=== PATIENT | female | born 1985 | race Caucasian/White ===

== ENCOUNTER 2017-08-03 13:34 | Inpatient (IN) ==
[2017-08-03] MEDS ORDERED: Azithromycin 500 MG in D5% in Water 250 ML IVPB ONE (14:32)
[2017-08-03] MEDS ORDERED: Ipratropium/Albuterol Neb 3 ML IH ONE (14:33)
[2017-08-03] MEDS ORDERED: 0.9 % Sodium Chloride 1,000 ML IVC ONE (14:34)
--- NOTE | 2017-08-03 15:15 | Emergency Department Note ---
Disposition Clinical Impression: Pneumonia affecting in third trimester Disposition: Admitted As Inpatient Condition: Good Time of Disposition: 17:18 General Adult HPI - General Chief complaint: ED Shortness of Breath/Dyspnea Stated complaint: pneumonia-sent by Dr. Gusman Time Seen by Provider: 08/03/17 14:15 Source: patient Limitations: no limitations Nursing Notes Reviewed: Yes Vital Signs Reviewed: Yes - History of Present Illness HPI Narrative: 31-year-old female presents to the emergency Department chief complaint of worsening pneumonia. Patient is 37 weeks . Patient was seen as an outpatient at her EMERGENCY DOCTOR's office today and was sent to the emergency department due to concerning for worsening pneumonia. Patient has had a fever at home. Patient has cough but denies hemoptysis, nausea, vomiting. Patient denies urinary symptoms at this time. Patient denies chest pain. Patient was placed on azithromycin as an outpatient but feels she is not getting better. Patient denies any vaginal cramping or bleeding at this time. Patient does have history of hypertension and is being controlled by labetalol. Pain Scale: 5 - Related Data Home Medications Medication Instructions Recorded Confirmed Docusate [Colace] 100 mg PO DAILY PRN 08/03/17 08/03/17 Ferrous Sulfate 325 mg PO BID 08/03/17 08/03/17 Labetalol [Trandate] 100 mg PO BID 08/03/17 08/03/17 Pnv95/Ferrous Fumarate/FA 1 each PO DAILY 08/03/17 08/03/17 [ Vitamin Tablet] Promethazine [Phenergan] 25 mg PO QPM 08/03/17 08/03/17 Previous Rx's Medication Instructions Recorded Ondansetron ODT [Zofran ODT] 4 mg SL Q8HR PRN #6 tab.rapdis 05/02/16 Albuterol Sulfate [Albuterol 1 puff IH Q4HR #1 hfa.aer.ad 07/31/17 Inhaler] Azithromycin [Azithromycin 6-Tab 250 mg PO PER PKG DI #6 tab 07/31/17 Pack] predniSONE [Prednisone] 50 mg PO DAILY #5 tablet 07/31/17 Allergies Allergy/AdvReac Type Severity Reaction Status Date / Time codeine Allergy Difficulty Verified 07/31/17 16:25 Breathing doxycycline Allergy Difficulty Verified 07/31/17 16:25 Breathing sulfamethoxazole Allergy Hives Verified 07/31/17 16:25 [From Bactrim] trimethoprim [From Bactrim] Allergy Hives Verified 07/31/17 16:25 All systems ED: reviewed and negative except as stated. Constitutional: Reports: fever. Denies: chills, weakness Eyes: Reports: as per HPI ENT ED: Reports: as per HPI Cardiovascular: Denies: chest pain, palpitations Respiratory: Reports: cough, dyspnea. Denies: wheezes, hemoptysis Gastrointestinal: Denies: abdominal pain, nausea, vomiting Genitourinary: Denies: urgency, dysuria, hematuria Musculoskeletal: Reports: as per HPI Integumentary: Reports: breast mass Neurological: Denies: weakness, numbness, paresthesias Psychiatric: Reports: as per HPI Endocrine: Reports: as per HPI Hematological/Lymphatic: Reports: as per HPI Allergic/Immunologic: Reports: as per HPI Past Medical History - Past Medical History Attestation: Yes The following information was validated with the patient. Medical history: Reports: asthma, hypertension Psychiatric history: Reports: no psych history EMERGENCY DOCTOR history: Reports: other - Social History Smoking Status: Current every day smoker Smokeless Tobacco Status: No Alcohol use: Reports: none Drug use: Reports: none Physical Exam - General Limitations: no limitations General appearance: alert, in no apparent distress - Head Head exam: atraumatic, normocephalic, normal inspection - Chest Chest inspection: Present: normal inspection, symmetric chest wall rise. Absent : tenderness, rash - Respiratory Respiratory exam: Present: other (Rhonchi in the right lower posterior lung field). Absent: respiratory distress, wheezes - Cardiovascular Cardiovascular exam: Present: regular rate, normal rhythm, normal heart sounds - Abdominal Exam Abdominal exam: Present: soft, Non-Tender - Extremities Exam Extremities exam: Present: normal inspection, full ROM - Neurological Exam Neurological exam: Present: alert, oriented X3 - Psychiatric Psychiatric exam: Present: normal affect, normal mood - Skin Skin exam: Present: warm, intact Course Course Narrative: 31-year-old female presenting to the emergency department with a worsening pneumonia. We will obtain basic lab work at this time along with blood cultures anyway. We will start IV antibiotics at this time. We will provide inhale to an abscess. Disposition admission after basic lab work is been completed. Patient is alert and oriented 3 in the room and stable vital signs. - Reevaluation(s) Reevaluation #1: Patient's lab work shows anemia and hypokalemia. We will admit the patient at this time for IV antibiotics for pneumonia. Patient in the room stable with stable vital signs. Time: 16:39 Reevaluation #2: Eliezer Jolly accepts the patient Time: 17:18 Vital Signs Temperature 98.1 F 08/03/17 13:35 Pulse Rate 85 08/03/17 13:35 Respiratory Rate 18 08/03/17 13:35 Blood Pressure 145/95 08/03/17 13:35 O2 Sat by Pulse Oximetry 98 08/03/17 13:35 Temperature 98.1 F 08/03/17 13:35 Pulse Rate 79 08/03/17 17:01 Respiratory Rate 16 08/03/17 18:11 Blood Pressure 130/84 08/03/17 18:11 O2 Sat by Pulse Oximetry 97 08/03/17 17:01 Oxygen Delivery Oxygen Delivery Room Air Medical Decision Making - Lab Data Result diagrams: 08/03/17 15:22 08/03/17 15:22 Lab Results 08/03/17 08/03/17 08/03/17 Range/Units 15:22 15:22 15:37 WBC 9.4 (4.3-11.1) K/mcL RBC 2.69 L (3.82-4.97) M/mcL Hgb 8.8 L (11.5-15.4) g/dL Hct 27.6 L (35.3-44.9) % MCV 102.6 H (83.0-100.0) fL MCH 32.7 (28.0-33.3) pg MCHC 31.9 (31.6-35.5) g/dL RDW 13.5 (11.5-14.5) % Plt Count 205 (140-400) K/mcL MPV 10.0 (9.4-12.4) fL Immature Gran % 2.3 (0-4) % Seg Neutrophils % 62.6 % Lymphocytes % 26.5 % Monocytes % 8.2 % Eosinophils % 0.2 % Basophils % 0.2 % Neutrophils # 5.9 (1.6-8.9) K/mcL Lymphocytes # 2.5 (0.6-4.6) K/mcL Monocytes # 0.8 (0.0-1.3) K/mcL Eosinophils # 0.0 (0.0-0.6) K/mcL Basophils # 0.0 (0.0-0.2) K/mcL Sodium 138 (136-145) mEq/L Potassium 3.1 L (3.5-4.5) mEq/L Chloride 108 (98-109) mEq/L Carbon Dioxide 21 (19-29) mEq/L BUN 7 (7-20) mg/dL Creatinine 0.62 (0.57-1.11) mg/dL Est GFR ( Amer) > 60 (> 60) Est GFR (Non-Af Amer) > 60 (> 60) BUN/Creatinine Ratio 11 (6-26) Glucose 97 (70-99) mg/dL Calculated Osmolality 284 (280-300) Lactic Acid 1.9 (0.5-2.2) mmol/L Calcium 8.5 L (8.6-10.8) mg/dL Urine Color (Yellow) Urine Clarity (Clear) Urine pH (5.0-8.0) pH Units Ur Specific Sturgeon (1.010-1.025) Urine Protein (Neg-Trace) mg/dL Urine Glucose (UA) (Normal) mg/dL Urine Ketones (Negative) mg/dL Urine Blood (Negative) Urine Nitrite (Negative) Urine Bilirubin (Negative) Urine Urobilinogen (Normal) mg/dL Ur Leukocyte Esterase (Negative) Ur Culture Indicated? (NO) 08/03/17 Range/Units 15:38 WBC (4.3-11.1) K/mcL RBC (3.82-4.97) M/mcL Hgb (11.5-15.4) g/dL Hct (35.3-44.9) % MCV (83.0-100.0) fL MCH (28.0-33.3) pg MCHC (31.6-35.5) g/dL RDW (11.5-14.5) % Plt Count (140-400) K/mcL MPV (9.4-12.4) fL Immature Gran % (0-4) % Seg Neutrophils % % Lymphocytes % % Monocytes % % Eosinophils % % Basophils % % Neutrophils # (1.6-8.9) K/mcL Lymphocytes # (0.6-4.6) K/mcL Monocytes # (0.0-1.3) K/mcL Eosinophils # (0.0-0.6) K/mcL Basophils # (0.0-0.2) K/mcL Sodium (136-145) mEq/L Potassium (3.5-4.5) mEq/L Chloride (98-109) mEq/L Carbon Dioxide (19-29) mEq/L BUN (7-20) mg/dL Creatinine (0.57-1.11) mg/dL Est GFR ( Amer) (> 60) Est GFR (Non-Af Amer) (> 60) BUN/Creatinine Ratio (6-26) Glucose (70-99) mg/dL Calculated Osmolality (280-300) Lactic Acid (0.5-2.2) mmol/L Calcium (8.6-10.8) mg/dL Urine Color Yellow (Yellow) Urine Clarity Clear (Clear) Urine pH 7.0 (5.0-8.0) pH Units Ur Specific Sturgeon 1.019 (1.010-1.025) Urine Protein Negative (Neg-Trace) mg/dL Urine Glucose (UA) Normal (Normal) mg/dL Urine Ketones Negative (Negative) mg/dL Urine Blood Negative (Negative) Urine Nitrite Negative (Negative) Urine Bilirubin Negative (Negative) Urine Urobilinogen Normal (Normal) mg/dL Ur Leukocyte Esterase Negative (Negative) Ur Culture Indicated? NO (NO) Attestation Statement - Attestation Attestation: I examined this patient and my medical decision-making was reviewed with the Resident Physician. I agree with the documented findings, disposition and treatment plan as described except to the extent set forth below. 37 weeks and found to have pneumonia. Sent in by EMERGENCY DOCTOR for admission to the hospital. She is scheduled for next week. Plan to admit for IV antibiotics, I would avoid reimaging at this time. She was febrile at the doctor's office today but afebrile on arrival. Stable at time of admission.
[2017-08-03 15:50] LABS: Basophils % 0.2 %; Eosinophils % 0.2 %; Hematocrit 27.6 % (35.3-44.9); Hemoglobin 8.8 g/dL (11.5-15.4); Immature Granulocytes % 2.3 % (0-4); Lymphocytes # 2.5 K/mcL (0.6-4.6); Lymphocytes % 26.5 %; Mean Corpuscular HGB Conc 31.9 g/dL (31.6-35.5); Mean Corpuscular Hemoglobin 32.7 pg (28.0-33.3); Mean Corpuscular Volume 102.6 fL (83.0-100.0); Monocytes # 0.8 K/mcL (0.0-1.3); Monocytes % 8.2 %; Neutrophils # 5.9 K/mcL (1.6-8.9); Platelet Count 205 K/mcL (140-400); Red Blood Count 2.69 M/mcL (3.82-4.97); Red Cell Distribution Width 13.5 % (11.5-14.5); Segmented Neutrophils % 62.6 %
[2017-08-03 15:56] LABS: Bilirubin,Urine Negative (Negative); Blood,Urine Negative (Negative); Clarity,Urine Clear (Clear); Color,Urine Yellow (Yellow); Glucose,Urine (UA) Normal (Normal); Ketones,Urine Negative (Negative); Leukocyte Esterase,Urine Negative (Negative); Nitrite,Urine Negative (Negative); Protein,Urine Negative (Neg-Trace); Specific Gravity,Urine 1.019 (1.010-1.025); Urobilinogen,Urine Normal (Normal)
[2017-08-03 16:03] LABS: BUN/Creatinine Ratio 11 (6-26); Blood Urea Nitrogen 7 mg/dL (7-20); Calcium 8.5 mg/dL (8.6-10.8); Carbon Dioxide 21 mEq/L (19-29); Chloride 108 mEq/L (98-109); Glucose 97 mg/dL (70-99); Osmolality,Calculated 284 (280-300); Potassium 3.1 mEq/L (3.5-4.5); Sodium 138 mEq/L (136-145); eGFR For African Americans > 60 (> 60); eGFR For Non-African Americans > 60 (> 60)
[2017-08-03] MEDS ORDERED: Naloxone 0.4 MG/ML INJ IVP PRN (22:47)
[2017-08-03] MEDS ORDERED: Acetaminophen 325 MG TABLET PO PRN (22:47)
--- NOTE | 2017-08-03 23:03 | OB/GYN Consult Note ---
Date of Encounter: 08/04/17 Time of Encounter: 22:30 Assessment and Plan (1) 37 weeks gestation of Current Visit: Yes Status: Acute Patient admits to good movement. She denies any vaginal fluid leakage or bleeding. Denies contractions. Pt was seen by Dr. Gusman in office today and BPP was 8/8 when performed today in outpatient clinic. - Daily NSTs.per Dr. Gusman. (2) Pneumonia Current Visit: No Status: Acute Qualifiers: Pneumonia type: due to unspecified organism Laterality: right Lung location: unspecified part of lung Qualified Code(s): J18.9 - Pneumonia, unspecified organism (3) Anemia Current Visit: Yes Status: Acute Hemoglobin count at 8.8. - Currently on iron supplements. Qualifiers: Anemia type: unspecified type Qualified Code(s): D64.9 - Anemia, unspecified History of Present Illness Consult date: 08/03/17 Requesting physician: Josephine Randolph Reason for consult: other (Pneumonia) Chief complaint: Fever, SOB History of present illness: Radha Quiroga is a 31 YO F at 37 4/7 wks gestation with a PMH of HTN and asthma that presents for worsening symptoms of PNA. Patient was originally seen at the [facility] on 07/31/17 where she complaining of fever, cough, and shortness of breath. She reported to the ER where chest x-ray showed possible PNA. She was discharged with azithromycin, prednisone, and albuterol. She was seen again today in [facility] outpatient and was complaining that her symptoms were not improving. She was sent to the ER and admitted to the hospital. She was started on IV antibiotics. When seen today, patient says that she has good movements. She denies contractions. Denies vaginal fluid leakage or bleeding. She admits to headaches, but says that she was having them prior to her . However, her headaches have been getting worse for the past few days. She is unsure how long they last but says they are usually relieved with Tylenol. She denies any vision changes. Denies chest pain. Admits to nausea throughout her , but denies any vomiting. She admits to having a fever earlier this morning, but not now. She admits to a productive cough but denies any hemoptysis. She denies dysuria or diarrhea. Past Med Surg Social Fam HX - Past Medical History Medical history: asthma, hypertension Psychiatric history: no psych history - Social History Smoking Status: Current every day smoker Smokeless Tobacco Status: No Alcohol use: none Drug use: none Medications and Allergies Ondansetron ODT [Zofran ODT] 4 mg SL Q8HR PRN #6 tab.rapdis 05/02/16 [Rx] Albuterol Sulfate [Albuterol Inhaler] 1 puff IH Q4HR #1 hfa.aer.ad 07/31/17 [Rx] Azithromycin [Azithromycin 6-Tab Pack] 250 mg PO PER PKG DI #6 tab 07/31/17 [Rx] predniSONE [Prednisone] 50 mg PO DAILY #5 tablet 07/31/17 [Rx] Docusate [Colace] 100 mg PO DAILY PRN 08/03/17 [History] Ferrous Sulfate 325 mg PO BID 08/03/17 [History] Labetalol [Trandate] 100 mg PO BID 08/03/17 [History] Pnv95/Ferrous Fumarate/FA [ Vitamin Tablet] 1 each PO DAILY 08/03/17 [ History] Promethazine [Phenergan] 25 mg PO QPM 08/03/17 [History] 3 Allergy/AdvReac Type Severity Reaction Status Date / Time codeine Allergy Difficulty Verified 07/31/17 16:25 Breathing doxycycline Allergy Difficulty Verified 07/31/17 16:25 Breathing sulfamethoxazole Allergy Hives Verified 07/31/17 16:25 [From Bactrim] trimethoprim [From Bactrim] Allergy Hives Verified 07/31/17 16:25 Review of Systems Constitutional: as per HPI Exam - Vital Signs Vital signs: Initial Vital Signs Temp Pulse Resp BP Pulse Ox 98.1 F 85 18 145/95 98 08/03/17 13:35 08/03/17 13:35 08/03/17 13:35 08/03/17 13:35 08/03/17 13:35 - Constitutional Constitutional: well developed, well nourished, no acute distress, average body habitus - HEENT HEENT: EOMI, PERRL, Mucus Membranes Moist - Lungs Respiratory exam: CTAB - Cardiovascular Cardiovascular exam: RRR, +S1, +S2 - Abdomen Abdomen: Present: bowel sounds normal, gravid, non tender - Extremities Extremities exam: normal capillary refill, normal inspection, radial pulses palpable and symmetrical Deep Tendon Reflex Grade: 2+ Normal - Comments Comments: Neuro: CN II-XII intact. No focal deficits noted. Results Result Diagrams: 08/03/17 15:22 08/03/17 15:22 Abnormal lab results RBC 2.69 M/mcL (3.82-4.97) L 08/03/17 15: Hgb 8.8 g/dL (11.5-15.4) L 08/03/17: Hct 27.6 % (35.3-44.9) L 08/03/17 15: MCV 102.6 fL (83.0-100.0) H 08/03/17 15: Potassium 3.1 mEq/L (3.5-4.5) L 08/03/17 15: Calcium 8.5 mg/dL (8.6-10.8) L 08/03/17 15:22 All other labs normal. Consult Discharge Plan - Plan Referrals: Cl Mahajan MD [Primary Care Provider] -
[2017-08-04 01:05] VITALS: BP 129/76
[2017-08-04] MEDS ORDERED: Albuterol 2.5 MG/3 ML NEBULIZER IH PRN (01:24)
--- NOTE | 2017-08-04 01:31 | Internal Med History&Physical ---
<Lynn Wayne - Last Filed: 08/04/17 01:44> Date of Encounter: 08/04/17 Time of Encounter: 23:00 Assessment and Plan (1) Hypokalemia Current visit: Yes Status: Acute 1 potassium 3.1 we will give 20 mEq of KCl by mouth and recheck in the a.m. (2) Pneumonia Current visit: No Status: Acute 1 patient has been experiencing cough fever and sputum production. She was treated as an outpatient without any improvement. Seen in ER today., was given Rocephin and Zithromax IV which we will continue. Oxygen as needed to maintain acid to greater than 92% Bronchodilators as needed Qualifiers: Pneumonia type: due to unspecified organism Laterality: right Lung location: unspecified part of lung Qualified Code(s): J18.9 - Pneumonia, unspecified organism (3) 37 weeks gestation of Current visit: Yes Status: Acute 1 patient is 37 weeks gestation OB has been consulted (4) Anemia Current visit: Yes Status: Acute 1 hemoglobin presently 8.8 down from previous of 9.9. Continue with iron supplements Qualifiers: Anemia type: unspecified type Qualified Code(s): D64.9 - Anemia, unspecified (5) DVT prophylaxis Current visit: Yes Status: Acute SCDs while in bed and encourage patient to ambulate (6) Tobacco use Current visit: Yes Status: Acute Encourage patient to stop smoking Internal Medicine - H&P: HPI Chief complaint: cough sob Admitted From: Emergency Dept Plans for Post Hospital Care: Home History of present illness: Ms. Quiroga is a 31 year old female past medical history of hypertension and asthma G7 para 3 presently 47 weeks gestation. She initially presented [facility] on 07/31 2017 was complaining of fever cough and shortness of breath. She was seen in the ER and chest x-ray was obtained which showed possible pneumonia. She was given orals Zithromax prednisone and albuterol. She continued to experience symptoms with little improvement. She presented today to OB office complaining that her symptoms have not improved. She was sent to the ER and admitted to the hospital. She was started on antibiotics. She has good movement she denies any contractions at this time or leakage of any vaginal fluids or bleeding. She denies any chest pain or shortness of breath she is hemodialysis stable at this time I review this case with who agrees with plan. Past Med Surg Social Fam HX - Past Medical History Medical history: asthma, hypertension Psychiatric history: no psych history - Social History Smoking Status: Current every day smoker Smokeless Tobacco Status: No Alcohol use: none Drug use: none - Family History Mother Living Status: Still Living Father Living Status: Still Living Internal Medicine - H&P: Meds Ondansetron ODT [Zofran ODT] 4 mg SL Q8HR PRN #6 tab.rapdis 05/02/16 [Rx] Albuterol Sulfate [Albuterol Inhaler] 1 puff IH Q4HR #1 hfa.aer.ad 07/31/17 [Rx] Azithromycin [Azithromycin 6-Tab Pack] 250 mg PO PER PKG DI #6 tab 07/31/17 [Rx] predniSONE [Prednisone] 50 mg PO DAILY #5 tablet 07/31/17 [Rx] Docusate [Colace] 100 mg PO DAILY PRN 08/03/17 [History] Ferrous Sulfate 325 mg PO BID 08/03/17 [History] Labetalol [Trandate] 100 mg PO BID 08/03/17 [History] Pnv95/Ferrous Fumarate/FA [ Vitamin Tablet] 1 each PO DAILY 08/03/17 [ History] Promethazine [Phenergan] 25 mg PO QPM 08/03/17 [History] 3 Allergy/AdvReac Type Severity Reaction Status Date / Time codeine Allergy Difficulty Verified 07/31/17 16:25 Breathing doxycycline Allergy Difficulty Verified 07/31/17 16:25 Breathing sulfamethoxazole Allergy Hives Verified 07/31/17 16:25 [From Bactrim] trimethoprim [From Bactrim] Allergy Hives Verified 07/31/17 16:25 All Systems PM: A 10-system review of systems was performed and is negative for pertinent findings except as documented above in the HPI. - Constitutional Constitutional: no chills, no fever(s), no night sweats - EENT Eyes: no change in vision, no discharge, no pain, no photophobia Nose, mouth and throat: no dysphagia, no nasal discharge, no neck pain, no sore throat - Cardiovascular Cardiovascular ROS IM: no chest pain, no diaphoresis, no dyspnea, no lightheadedness, no palpitations, no syncope - Respiratory Respiratory: cough, dyspnea, excessive phlegm production - Gastrointestinal Gastrointestinal: no abdominal pain, no diarrhea, no hematemesis, no hematochezia, no melena, no nausea, no vomiting - Genitourinary Genitourinary: no change in urinary stream, no dysuria, no flank pain, no hematuria - Musculoskeletal Musculoskeletal ROS IM: no numbness, no tingling - Neurological Neurological ROS: no confusion, no convulsions, no focal weakness, no numbness, no tingling, no tremor(s) - Hematologic/Lymphatic Hematologic/Lymphatic: no easy bruising - Constitutional Vitals: Temp Pulse Resp BP Pulse Ox 97.8 F 78 17 129/76 97 08/04/17 00:31 08/04/17 00:31 08/04/17 00:31 08/04/17 00:31 08/04/17 00:31 General appearance: Present: A&O X 3, answers questions appropriately - Head Head exam: Present: atraumatic, normocephalic - Eye Eye exam: Present: PERRL, conjuntiva pink, sclera anicteric Pupils: Present: PERRL - Neck Neck exam general surgery: Present: supple, trachea midline. Absent: lymphadenopathy - Respiratory Respiratory exam: Absent: accessory muscle use, rales, rhonchi, wheezes Additional comments: Scattered fine crackles - Cardiovascular Cardiovascular exam: Present: RRR, +S1, +S2. Absent: diastolic murmur, gallop, rubs, systolic murmur - GI/Abdominal GI/Abdominal exam: Present: normal bowel sounds, soft, no peritoneal signs. Absent: distended, tenderness - Extremities Exam Extremities exam: Present: warm, radial pulses palpable and symmetrical. Absent : calf tenderness, cyanotic, pedal edema - Neurological Exam Neurological exam: Present: CN II-XII intact, oriented X3, no focal deficits. Absent: pronater drift, facial droop, speech deficit - Skin Skin exam: Present: dry, intact Internal Med - H&P Results - Labs CBC & Chem 7: 08/03/17 15:22 08/03/17 15:22 <Ranulfo Wynn - Last Filed: 08/04/17 03:53> Date of Encounter: 08/03/17 Internal Medicine - H&P: HPI History of present illness: Ms. Quiroga is a 31 year old female All Systems PM: A 10-system review of systems was performed and is negative for pertinent findings except as documented above in the HPI. - Constitutional Vitals: Temp Pulse Resp BP Pulse Ox 97.8 F 78 17 129/76 97 08/04/17 00:31 08/04/17 00:31 08/04/17 00:31 08/04/17 00:31 08/04/17 00:31 Internal Med - H&P Results - Labs CBC & Chem 7: 08/03/17 15:22 08/03/17 15:22 - Diagnostic Studies Chest x-ray Status: image reviewed by me (prior image obtained on 07/31/17) - Attending Attestation Correction, date of encounter was 08/03/17 and not 08/04/17, the error is purely electronic in nature I personally interviewed and examined this patient and my medical decision- making was reviewed with the Advanced Practice Nurse. I agree with the documented findings, disposition and treatment plan as described. Ranulfo Wynn MD, MPH Hospitalist
--- NOTE | 2017-08-04 01:48 | Event Note ---
Date of Encounter: 08/04/17 Time of Encounter: 01:23 Notified per nursing staff patient stated she felt great and decided she wanted to leave AMA. Patient took out her own IV and walked out before staff could talk with her. Security notified and able to find patient. AMA papers not signed.
[2017-08-04] MEDS ORDERED: Azithromycin 500 MG in D5% in Water 250 ML IVPB SCH (17:00)
== END 2017-08-04 00:55 | disposition left against medical advice (07) | DRG 566 ==
LOC: 3ANU 13:34 → EMEROO 13:34 → OBSVTOIN 17:38 → 3ANU 20:25
PROVIDERS: ADMIT Nurse Practitioner Acute Care; ATTEND Internal Medicine

== ENCOUNTER 2017-08-07 11:45 | Observation (INO) ==
[2017-08-07 12:44] LABS: Eosinophils # 0.1 K/mcL (0.0-0.6); Hematocrit 27.4 % (35.3-44.9); Hemoglobin 9.3 g/dL (11.5-15.4); Mean Corpuscular HGB Conc 33.9 g/dL (31.6-35.5); Mean Corpuscular Volume 97.2 fL (83.0-100.0); Mean Platelet Volume 9.9 fL (9.4-12.4); Platelet Count 250 K/mcL (140-400); Red Blood Count 2.82 M/mcL (3.82-4.97); Red Cell Distribution Width 13.4 % (11.5-14.5)
[2017-08-07 12:54] LABS: Alanine Aminotransferase 15 Units/L (0-55); Aspartate Amino Transferase 13 Units/L (5-34); BUN/Creatinine Ratio 11 (6-26); Blood Urea Nitrogen 7 mg/dL (7-20); Lactate Dehydrogenase 143 Units/L (159-327); Uric Acid 4.8 mg/dL (2.6-6.0); eGFR For African Americans > 60 (> 60); eGFR For Non-African Americans > 60 (> 60)
[2017-08-07 13:17] LABS: Amphetamine Screen,Urine Negative ng/mL (Cutoff=1000); Barbiturate Screen,Urine Negative ng/mL (Cutoff=200); Benzodiazepines Screen,Urine Negative ng/mL (Cutoff=200); Cannabinoid Screen,Urine Negative ng/mL (Cutoff = 50); Cocaine Screen,Urine Negative ng/mL (Cutoff= 300); Opiate Screen,Urine Negative ng/mL (Cutoff=300); Phencyclidine Screen,Urine Negative ng/mL (Cutoff=25)
[2017-08-07 13:23] LABS: Protein/Creatinine Ratio,Urine 0.11 mg/mg (0-0.20)
[2017-08-07 13:37] LABS: Lymphocytes # 4.3 K/mcL (0.6-4.6); Neutrophils # 6.1 K/mcL (1.6-8.9); Platelet Estimate Normal (Normal); Reactive Lymphocytes Present (Not Present)
[2017-08-07 13:38] LABS: Large Platelets Present (Not Present); Polychromasia 1+ (Not Present)
--- NOTE | 2017-08-07 14:00 | OB/GYN Progress Note ---
Date of Encounter: 08/07/17 Time of Encounter: 13:50 - Assessment and Plan (1) 38 weeks gestation of Current Visit: Yes Status: Acute (2) Hypertension Current Visit: Yes Status: Acute PIH panel was ordered. Urine protein/creatinine ratio was normal. Patient had a reactive NST. - Patient will be discharged home. She has a follow-up appointment with Dr. Gusman on 08/09/17. Qualifiers: Qualified Code(s): I10 - Essential (primary) hypertension (3) Breech presentation Current Visit: Yes Status: Acute Patient has an appointment with Dr. Mahajan on 08/13/17 for external cephalic version. Qualifiers: Fetus number: single or unspecified fetus Qualified Code(s): O32.1XX0 - Maternal care for breech presentation, not applicable or unspecified (4) Anemia Current Visit: No Status: Acute Hgb is 9.3. - Iron supplements. Qualifiers: Anemia type: unspecified type Qualified Code(s): D64.9 - Anemia, unspecified Subjective - Subjective Principal diagnosis: Gestational HTN Interval history: Radha is a 31 YO F at 38 1/7 wks gestation with a PMH of HTN, Herpes, PNA, and asthma that presents for PIH evaluation. Patient had a scheduled appointment with Dr. Mahajan at the clinic where it was shown that she had an elevated BP of 158/98. She was then sent to OB triage for further evaluation. She admits to good movement. She denies any vaginal fluid leakage or bleeding. She denies headaches or vision changes. Patient was recently hospitalized for PNA on 08/03/17. She admits to minor non-productive cough that has been improving. She denies fever, chest pain, shortness of breath, dysuria, or diarrhea. GBS: negative Varicella Ab: positive Blood type: O+ HIV Ag/Ab: negative Rubella Ab: positive HepBSAb: non-reactive Antepartum ROS: movement normal Objective - Vital Signs Vital Signs: Intake and Output 08/06/17 08/07/17 08/07/17 23:59 07:59 15:59 Other: Weight 73.5 kg Patient Weight 08/07/17 23:59 Weight 73.5 kg BP: 142/83 HR: 83 FHR: 144 Yoder: 63 - Exam FHR: auscultation normal Auscultation: bilateral: normal Abdomen: Present: normal appearance, soft, gravid Uterus: Present: normal, firm Comments: CV: RRR. +S1 +S2 Neuro: DTRs +2 bilaterally in upper and lower extremities. EXT: Radial and pedal pulses intact and symmetrical bilaterally. - Labs Labs: Abnormal lab results WBC 11.9 K/mcL (4.3-11.1) H 08/07/17 12: RBC 2.82 M/mcL (3.82-4.97) L 08/07/17 12:27 Hgb 9.3 g/dL (11.5-15.4) L 08/07/17 12: Hct 27.4 % (35.3-44.9) L 08/07/17 12: Metamyelocytes % 2.0 % (0) H 08/07/17 12:27 Myelocytes % 2.0 % (0) H 08/07/17 12:27 Reactive Lymphocytes Present (Not Present) A 08/07/17 12:27 Large Platelets Present (Not Present) A 08/07/17 12:27 Polychromasia 1+ (Not Present) A 08/07/17 12: Lactate Dehydrogenase 143 Units/L (159-327) L 08/07/17 12:27
== END 2017-08-07 14:20 | disposition home or self-care (01) ==
LOC: 1NENULAB
PROVIDERS: ADMIT Obstetrics & Gynecology; ATTEND Obstetrics & Gynecology

== ENCOUNTER 2017-08-14 07:57 | Inpatient (IN) ==
[2017-08-14] MEDS ORDERED: Ringers Solution, Lactated 1,000 ML ONE ×2 (08:55→10:24)
[2017-08-14] MEDS ORDERED: Ondansetron 4 MG/2 ML VIAL IVP PRN ×3 (08:58→14:35)
[2017-08-14] MEDS ORDERED: Metoclopramide 10 MG/2 ML VIAL IVP PRN ×2 (08:58→14:35)
[2017-08-14] MEDS ORDERED: Famotidine 20 MG/2 ML VIAL IVP PRN (08:58)
[2017-08-14] MEDS ORDERED: Naloxone 0.4 MG/ML INJ IVP PRN ×2 (08:58→10:05)
[2017-08-14] MEDS ORDERED: Ringers Solution, Lactated 1,000 ML IVC SCH (09:00)
[2017-08-14] MEDS ORDERED: *HR* FentaNYL (PF) 100 MCG/2 ML VIAL ONE (09:10)
[2017-08-14] MEDS ORDERED: *HR* Phenylephrine 10 MG/ML VIAL ONE (09:10)
[2017-08-14] MEDS ORDERED: *HR* Morphine Sulfate/PF 5 MG/10 ML AMPUL ONE (09:10)
[2017-08-14] MEDS ORDERED: *HR* Oxytocin 10 UNIT/ML VIAL IM ONE (09:10)
[2017-08-14 09:30] LABS: Amphetamine Screen,Urine Negative ng/mL (Cutoff=1000); Barbiturate Screen,Urine Negative ng/mL (Cutoff=200); Benzodiazepines Screen,Urine Negative ng/mL (Cutoff=200); Cannabinoid Screen,Urine Negative ng/mL (Cutoff = 50); Cocaine Screen,Urine Negative ng/mL (Cutoff= 300); Opiate Screen,Urine Negative ng/mL (Cutoff=300); Phencyclidine Screen,Urine Negative ng/mL (Cutoff=25)
--- NOTE | 2017-08-14 09:30 | OB/GYN History & Physical ---
Date of Encounter: 08/14/17 Time of Encounter: 09:27 Assessment and Plan (1) Term Current visit: Yes Status: Acute (2) Breech presentation Current visit: No Status: Acute D/w pt options of version, vaginal breech delivery or primary . Pt is aware of risks of each and desires to proceed with Primary . She is aware of operative risks and signed appropriate consent. Qualifiers: Fetus number: single or unspecified fetus Qualified Code(s): O32.1XX0 - Maternal care for breech presentation, not applicable or unspecified History of Present Illness Chief complaint: Here for primary for breech HPI: Ms. Quiroga is a 31 year old female 31 yo female presents at 39 weeks gestation with c/o breech infant. She has been offered version but declines b/c of risk of distress. has been complicated by Hypertension for which she takes Labetalol and placental lakes up to 7cm. She also smoked. On arrivaal she reports uc's q 4 min, no vb or lof. 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 U/S on arrival shows breech . Past Med Surg Social Fam HX - Past Medical History Source: patient, old records reviewed Medical history: asthma, hypertension Psychiatric history: anxiety - Past Surgical History Surgical History: other - Social History Smoking Status: Current every day smoker Packs per day: 0.5 Smokeless Tobacco Status: No Alcohol use: none Drug use: none - Family History Mother Adopted: [place]: Hailey Living Status: Still Living Hx Family Cardiac Disorders: No Hx Family Respiratory Disorders: No Hx Family Cancer: No Hx Family GI Disorders: No Hx Family Genitourinary Disorders: No Hx Family Endocrine Disorder: No Hx Family Musculoskeletal Disorders: No Hx Family Neuromuscular Disorders: No Hx Family Neurologic Disorders: No Hx Family HEENT Disorders: No Hx Family Autoimmune Disorders: No Hx Family Reproductive Disorders: No Hx Family Psychosocial Disorders: No Hx Family Medical Disorders: No Father Living Status: Still Living Hx Family Cardiac Disorders: Yes (HTN) Obstetrical History - Pregnancies : 7 Para: 3 Medications and Allergies Ondansetron ODT [Zofran ODT] 4 mg SL Q8HR PRN #6 tab.rapdis 05/02/16 [Rx] Docusate [Colace] 100 mg PO DAILY PRN 08/03/17 [History] Labetalol [Trandate] 100 mg PO BID 08/03/17 [History] Pnv95/Ferrous Fumarate/FA [ Vitamin Tablet] 1 each PO DAILY 08/03/17 [ History] Promethazine [Phenergan] 25 mg PO QPM 08/03/17 [History] 3 Allergy/AdvReac Type Severity Reaction Status Date / Time codeine Allergy Difficulty Verified 07/31/17 16:25 Breathing doxycycline Allergy Difficulty Verified 07/31/17 16:25 Breathing sulfamethoxazole Allergy Hives Verified 07/31/17 16:25 [From Bactrim] trimethoprim [From Bactrim] Allergy Hives Verified 07/31/17 16:25 Exam - Constitutional Constitutional: well nourished, no acute distress - HEENT HEENT: EOMI, PERRL - Neck Neck exam: full ROM - Lungs Respiratory exam: CTAB - Cardiovascular Cardiovascular exam: RRR - Abdomen Abdomen: Present: bowel sounds normal, gravid - Extremities Extremities exam: full ROM Deep Tendon Reflex Grade: 2+ Normal Results All other labs normal. - VTE Reasons for not Prescribing Prophylaxis: Treatment not Indicated - Low risk for VTE
[2017-08-14 09:34] LABS: Hemoglobin 12.3 g/dL (11.5-15.4); Red Blood Count 3.78 M/mcL (3.82-4.97)
[2017-08-14 09:38] LABS: Hematocrit 37.2 % (35.3-44.9); Mean Corpuscular HGB Conc 33.1 g/dL (31.6-35.5); Mean Corpuscular Hemoglobin 32.5 pg (28.0-33.3); Mean Corpuscular Volume 98.4 fL (83.0-100.0); Mean Platelet Volume 10.1 fL (9.4-12.4); Neutrophils # 5.7 K/mcL (1.6-8.9); Platelet Count 203 K/mcL (140-400); Red Cell Distribution Width 13.9 % (11.5-14.5); Segmented Neutrophils % 61.2 %
[2017-08-14 09:39] LABS: Basophils % 0.4 %; Eosinophils # 0.1 K/mcL (0.0-0.6); Eosinophils % 0.6 %; Lymphocytes # 2.3 K/mcL (0.6-4.6); Lymphocytes % 24.3 %; Monocytes # 1.1 K/mcL (0.0-1.3); Monocytes % 12.3 %
--- NOTE | 2017-08-14 09:48 | Anesthesia Evaluation PreOp ---
Date of Encounter: 08/14/17 Time of Encounter: 09:46 - Past History Planned Operation: re: Breech presentation Cardiac History: Denies any Significant Hx, HTN (maitained on Labetol) Pulmonary History: Smoker (<1ppd), Asthma, Other (recent pneumonia s/p Prednisone, Azithromycin completed 08/07/17) [employer]ER History: Denies Any Significant HX Other Medical History: Denies Any Significant HX Anesthesia History: No Prior Anesthetic Complications, Past Anesthesia (D&C), MH (NO FamHx of ) : Yes () Alcohol Use: none Drug use: none Medications and Allergies Ondansetron ODT [Zofran ODT] 4 mg SL Q8HR PRN #6 tab.rapdis 05/02/16 [Rx] Docusate [Colace] 100 mg PO DAILY PRN 08/03/17 [History] Labetalol [Trandate] 100 mg PO BID 08/03/17 [History] Pnv95/Ferrous Fumarate/FA [ Vitamin Tablet] 1 each PO DAILY 08/03/17 [ History] Promethazine [Phenergan] 25 mg PO QPM 08/03/17 [History] 3 Allergy/AdvReac Type Severity Reaction Status Date / Time codeine Allergy Difficulty Verified 07/31/17 16:25 Breathing doxycycline Allergy Difficulty Verified 07/31/17 16:25 Breathing sulfamethoxazole Allergy Hives Verified 07/31/17 16:25 [From Bactrim] trimethoprim [From Bactrim] Allergy Hives Verified 07/31/17 16:25 - Meds/Allergy Pre-op Review Medications Reviewed: Yes Allergies Reviewed: Yes Beta Blockers on Current Med List: Yes (Labetalol) If Beta Blockers taken, Date/Time (Last Dose taken): 08/13/17 @2200 Anesthesia Results - Labs 08/14/17 08:30 Anesthesia Exam Intake and Output 08/13/17 08/14/17 08/14/17 23:59 07:59 15:59 Other: Weight 71.8 kg Patient Weight 08/14/17 23:59 Weight 71.8 kg Height: 5'2" Weight: 158# BMI = 29 NPO (# of Hours): MNOc - HEENT Pupil (Motor): Pupils equal, EOMI Mallampati: II Teeth: Normal Oral Opening: Greater than 3 - [employer] LOC: Oriented [employer] Motor: Normal RUE, Normal LUE, Normal RLE, Normal LLE, Normal Face [employer] Sensory: Normal: RUE, LUE, RLE, LLE, Face - Cardiac Rhythm: Regular Murmur: None - Pulmonary Breath Sounds: bilateral Clear, bilateral Rales Respiratory Effort: Symmetrical Anesthesia Assess/Plan ASA Score: 2 (Term IUP, SMoker, ASthma) Modified Kodi Scale for Level of Consciousness: Cooperative, oriented, and tranquil Anesthetic Plan: Regional Monitoring Plan: Standard Monitors Recovery Plan: PACU Anes Supervising Prov Stmt: Pt seen/evaluated, R&B Discussed, questions answered and consent obtained. Boris Seo MD
[2017-08-14] MEDS ORDERED: *HR* HYDROmorphone (PF) 1 MG/ML SYRINGE IVP PRN (10:05)
[2017-08-14] MEDS ORDERED: *HR* Morphine 2 MG/ML SYRINGE IVP PRN (10:05)
[2017-08-14] MEDS ORDERED: Ibuprofen 400 MG TABLET PO PRN (10:05)
[2017-08-14] MEDS ORDERED: Oxytocin 20 units/ LR 1000 mL 20 UNIT/1,000 ML BAG IVC ONE (10:07)
[2017-08-14] MEDS ORDERED: Acetaminophen IV 1,000 MG/100 ML INFUS..BTL IVPB ONE (10:07)
--- NOTE | 2017-08-14 11:05 | Anesthesia Procedures ---
Date of Encounter: 08/14/17 Time of Encounter: 11:03 Procedures: Anesthesia - Epidural/Spinal Patient ID/Chart reviewed: Yes Patient examined: Yes OB Eval: Gestational age: 7 OB Eval: : 7 OB Eval: Hx Para: 3 OB Eval: Dilated at (cm): 3 OB Eval: Contractions: Non-stressed pattern Consent Obtained: Yes Supplemental Oxygen: Nasal Cannula Supplemental Oxygen Rate (L/min): 3 Site Prep: Aseptic Technique, Sterile prep and drape, 0.5% Chlorhexidine/Alcohol Patient position: upright Local Anesthetic: Lidocaine 1% Amount of Local Anesthetic used: 3 Interspace Used: L2-L3 Loss of Resistance (LINDA): No Blood: No CSF: Yes Paresthesia: No Spinal Needle Gauge: 25 Spinal Dose: marcaine 12mg, duramorph 0.2, fentanyl 7 mcg Procedure: aseptic, tolerated well, effective Vitals + FHT's: 140/80 88 16 fht 133
--- NOTE | 2017-08-14 11:39 | OB/GYN Procedure Note ---
Section - Date of procedure: 08/14/17 Preop diagnosis: breech Post-op diagnosis: same Procedure: primary low transverse Surgeon: Cl Mahajan Estimated blood loss (cc): 500 Anesthesia Type: Spinal section complications: none Disposition: PACU Specimens: Placenta - Infant (s) Infant A Delivery Date: 08/14/17 Delivery Time: 10:58 Presentation: breech Route of delivery: other () Gender: Male Viability: Viable Pounds: 7 Ounces: 5 at 1 minute: 8 at 5 minutes: 9 Shoulder Dystocia: not encountered Specimens collected: cord blood Placenta: complete extraction Cord: 3 umbilical vessels - Narrative Narrative: She is 31-year-old multiparous female 39 weeks gestation with breech infant this was confirmed by ultrasound today. We did discuss option of external version however she is quite worried about distress and declined this. I discussed with patient options decision was made to proceed with primary section she was aware of operative risks and signed appropriate consent. Description procedure: Patient was taken operating room where spinal anesthesia was administered. She prepped draped in usual sterile fashion bladder was drained of clear urine by Sher catheter. We determined adequate anesthesia. Scalpel was used to make pain still skin citizenship sharply taken down the rectus fascia. Fascia was incised midline fascial incision was extended bilaterally. There was developed and rectus muscle next fascia distally rectus muscle divided and peritoneum was entered bluntly. Bladder blade was placed. Bladder flap was developed and lower uterine segment. Scalpel was used to make a low transverse uterine incision which was extended bluntly bilaterally. was delivered from breech presentation after ruptured membranes. Meconium-stained fluid was noted. After delivery the cord was clamped cut and infant was taken to warmer were weight was found to be 7 lbs. 5 oz. Apgars were 8 at 1 minute and 9 at 5 minutes. Placenta was delivered manually without difficulty and uterine cavity was massaged free of all residual tissue. Uterus was closed 0 Vicryl in running lock stitch. Second imbricating layer was placed over the first. Irrigation was performed hemostasis was ensured. Fascia was closed 0 Vicryl in running manner. Irrigation was performed skin edges reapproximated with 4-0 Vicryl. All sponge and instruments counts are correct patient was taken recovery in good condition.
[2017-08-14] MEDS ORDERED: *HR* HYDROmorphone (PF) 1 MG/ML SYRINGE ONE ×2 (12:02→12:18)
[2017-08-14] MEDS: *HR* HYDROmorphone (PF) 1 MG/ML SYRINGE IVP PRN ×2 (12:06→12:24)
[2017-08-14] MEDS ORDERED: Sennosides 8.6 MG TABLET PO PRN (14:35)
[2017-08-14] MEDS ORDERED: Rho Immune Globulin 1,500 UNIT SYRINGE IM ONE (14:35)
[2017-08-14] MEDS: *HR* OxyCODONE/APAP 5/325 TABLET PO PRN ×2 (14:59→22:11)
[2017-08-14] MEDS: Oxytocin 20 units/ LR 1000 mL 20 UNIT/1,000 ML BAG IVC SCH (16:24)
[2017-08-14] MEDS: Ibuprofen 600 MG TABLET PO PRN ×2 (16:25→22:10)
[2017-08-14] MEDS ORDERED: *HR* OxyCODONE/APAP 5/325 TABLET PO ONE (17:46)
[2017-08-14] MEDS: Simethicone 80 MG TAB.CHEW PO PRN (22:11)
[2017-08-15] MEDS ORDERED: *HR* OxyCODONE/APAP 5/325 TABLET PO ONE (00:39)
[2017-08-15] MEDS: Oxytocin 20 units/ LR 1000 mL 20 UNIT/1,000 ML BAG IVC SCH ×2 (00:44→08:24)
[2017-08-15] MEDS: *HR* OxyCODONE/APAP 5/325 TABLET PO PRN ×2 (03:56→08:25)
[2017-08-15 06:40] LABS: Basophils % 0.3 %; Eosinophils # 0.1 K/mcL (0.0-0.6); Eosinophils % 0.8 %; Hemoglobin 8.7 g/dL (11.5-15.4); Immature Granulocytes % 0.5 % (0-4); Lymphocytes # 2.4 K/mcL (0.6-4.6); Lymphocytes % 26.2 %; Mean Corpuscular HGB Conc 33.5 g/dL (31.6-35.5); Mean Corpuscular Hemoglobin 31.5 pg (28.0-33.3); Mean Corpuscular Volume 94.2 fL (83.0-100.0); Monocytes # 1.1 K/mcL (0.0-1.3); Monocytes % 12.2 %; Neutrophils # 5.5 K/mcL (1.6-8.9); Platelet Count 142 K/mcL (140-400); Red Blood Count 2.76 M/mcL (3.82-4.97); Red Cell Distribution Width 13.8 % (11.5-14.5)
[2017-08-15] MEDS: Ibuprofen 600 MG TABLET PO PRN (07:25)
[2017-08-15] MEDS: Prenatal Vit/FA 1 EACH TABLET PO SCH (08:25)
--- NOTE | 2017-08-15 08:41 | OB/GYN Progress Note ---
Date of Encounter: 08/15/17 Time of Encounter: 08:38 - Assessment and Plan (1) Status post primary low transverse section Current Visit: Yes Status: Acute Continue routine postop/ care Subjective - Subjective Principal diagnosis: Postop/ day 1 primary c/s for breech presentation Interval history: Patient in bed, reports little pain control. ambulation encouraged. Ramirez catheter to be removed this morning. Patient reports: appetite normal, pain well controlled, ambulating normally, other (ramirez catheter still in place) : doing well, nursing well Objective - Vital Signs Latest vital signs: Vital Signs Temp Pulse Pulse Resp BP Pulse Ox 08/15/17 08:10 98.1 F 75 12 127/87 97 08/15/17 03:45 97.8 F 75 14 128/81 99 08/15/17 00:00 98.4 F 74 16 117/77 99 08/14/17 21:08 84 16 08/14/17 20:00 98.2 F 75 14 111/73 97 08/14/17 16:02 98 F 74 12 124/80 98 08/14/17 15:00 97.9 F 74 18 129/72 97 08/14/17 14:30 98.6 F 72 72 18 116/77 08/14/17 14:00 98.2 F 74 16 130/81 97 Intake and Output 08/14/17 08/15/17 08/15/17 23:59 07:59 15:59 Intake Total 120 / 120 1820 / 1820 1000 / 1000 Output Total 600 / 600 320 / 320 245 / 245 Balance -480 / -480 1500 / 1500 755 / 755 Intake: IV Fluids 1000 / 1000 1000 / 1000 Pitocin 20 unit In 1,000 ml @ 1000 / 1000 1000 / 1000 125 mls/hr IVC .Q8H MARLENE Rx#: [id number] Oral 120 / 120 820 / 820 Output: Catheter 600 / 600 320 / 320 245 / 245 Other: Stool Characteristics Normal for Patient Weight 68.039 kg Patient Weight 08/15/17 23:59 Weight 68.039 kg - Exam Lungs: bilateral: normal Chest: Normal S1, Normal S2 Extremities: Present: normal Abdomen: Present: normal appearance, soft, gravid Incision: Present: normal, dry, dressed (medipore dressing) Fundal Height: 1 (U/1) - Labs Labs: Laboratory Results - last 24 hr 08/14/17 08/14/17 08/15/17 08:30 08:30 06:12 WBC 9.3 9.2 RBC 3.78 L 2.76 L Hgb 12.3 D 8.7 L D Hct 37.2 26.0 L MCV 98.4 94.2 MCH 32.5 31.5 MCHC 33.1 33.5 RDW 13.9 13.8 Plt Count 203 142 MPV 10.1 10.0 Seg Neutrophils % 61.2 60.0 Lymphocytes % 24.3 26.2 Immature Gran % 0.5 Monocytes % 12.3 12.2 Eosinophils % 0.6 0.8 Basophils % 0.4 0.3 Neutrophils # 5.7 5.5 Lymphocytes # 2.3 2.4 Monocytes # 1.1 1.1 Eosinophils # 0.1 0.1 Basophils # 0.0 0.0 Urine Opiates Screen Negative Ur Barbiturates Screen Negative Ur Phencyclidine Scrn Negative Ur Amphetamines Screen Negative U Benzodiazepines Scrn Negative Urine Cocaine Screen Negative U Marijuana (THC) Screen Negative
[2017-08-15] MEDS: *HR* OxyCODONE/APAP 10/325 TABLET PO PRN ×3 (11:47→20:50)
[2017-08-16] MEDS: *HR* OxyCODONE/APAP 10/325 TABLET PO PRN ×6 (00:45→21:40)
[2017-08-16] MEDS: Ibuprofen 600 MG TABLET PO PRN ×3 (04:52→21:39)
[2017-08-16 08:28] LABS: Hematocrit 27.5 % (35.3-44.9); Hemoglobin 8.9 g/dL (11.5-15.4); Mean Corpuscular HGB Conc 32.4 g/dL (31.6-35.5); Mean Corpuscular Hemoglobin 31.4 pg (28.0-33.3); Mean Corpuscular Volume 97.2 fL (83.0-100.0); Platelet Count 167 K/mcL (140-400); Red Blood Count 2.83 M/mcL (3.82-4.97); Red Cell Distribution Width 13.4 % (11.5-14.5)
--- NOTE | 2017-08-16 08:50 | OB/GYN Progress Note ---
Date of Encounter: 08/16/17 Time of Encounter: 08:48 - Assessment and Plan (1) Hematoma of labia majora Current Visit: Yes Status: Acute Pt examined by Dr. Gusman. Continue to ice PRN. CBC stable (2) Status post primary low transverse section Current Visit: Yes Status: Acute Meeting post milestones. Continue current plan of care, anticipate DC tomorrow. Subjective - Subjective Interval history: Pt states pain is improved with medication changes from last night. Still has significant pain in labia when standing. Labia remain bruised and edematous. Breast feeding. Tolerating regular diet. Urinating with pain but no difficulty with urination. Patient reports: appetite normal, voiding normally, pain well controlled, ambulating normally : doing well, nursing well Objective - Vital Signs Latest vital signs: Vital Signs Temp Pulse Resp BP Pulse Ox 08/16/17 08:00 98.5 F 68 12 121/75 97 08/16/17 00:45 76 128/79 08/15/17 21:16 98.9 F 83 16 124/84 99 Intake and Output 08/15/17 08/16/17 08/16/17 23:59 07:59 15:59 Intake Total 600 / 600 Output Total 1800 / 1800 400 / 400 Balance -1800 / -1800 -400 / -400 600 / 600 Intake: Oral 600 / 600 Output: Urine 1800 / 1800 400 / 400 Other: Weight 69.4 kg Patient Weight 08/16/17 23:59 Weight 69.4 kg - Exam Lungs: bilateral: normal Chest: Normal S1, Normal S2 Extremities: Present: normal Abdomen: Present: soft Incision: Present: normal, intact Uterus: Present: normal, firm Comments: Hematoma noted to mons extending into bilateral labia, brusing and edema noted. No obstruction of urethra - Labs Labs: Laboratory Results - last 24 hr 08/16/17 08:10 WBC 7.6 RBC 2.83 L Hgb 8.9 L Hct 27.5 L MCV 97.2 MCH 31.4 MCHC 32.4 RDW 13.4 Plt Count 167 MPV 10.0
[2017-08-16] MEDS: Prenatal Vit/FA 1 EACH TABLET PO SCH (08:51)
[2017-08-16] MEDS: Simethicone 80 MG TAB.CHEW PO PRN (21:39)
--- NOTE | 2017-08-16 23:07 | Event Note ---
<Ozzie Major - Last Filed: 08/16/17 23:07> Date of Encounter: 08/16/17 Time of Encounter: 22:30 Was called in by nurse to evaluate progress of labial hematoma. The bruising seems to have improved since this morning showing minimal edema and swelling. She still reports pain, especially when she tries to sit up. Patient was reassured. We will continue with conservative management including ice packs and pain meds. <Emmie Roldan - Last Filed: 08/17/17 04:37> Date of Encounter: 08/17/17 Edema improved over this morning. bruising remains. Firm area noted to right upper area of mons under incision site. Non tender to palpation. Scant serosanguineous drainage noted from incision. Pt states able to urinate, pain in abdomen with bearing down to attempt to have BM.
[2017-08-17] MEDS: *HR* OxyCODONE/APAP 10/325 TABLET PO PRN ×3 (02:40→10:59)
[2017-08-17 06:22] LABS: Hematocrit 27.2 % (35.3-44.9); Hemoglobin 8.9 g/dL (11.5-15.4)
[2017-08-17] MEDS: Ibuprofen 600 MG TABLET PO PRN (06:53)
[2017-08-17 08:17] VITALS: BP 135/92
[2017-08-17] MEDS: Prenatal Vit/FA 1 EACH TABLET PO SCH (08:39)
--- NOTE | 2017-08-17 09:04 | Discharge Summary ---
Date of Encounter: 08/17/17 Time of Encounter: 09:05 - Discharge Diagnosis (1) Term Priority: Primary Status: Acute (2) Breech presentation Priority: Primary Status: Acute Qualifiers: Fetus number: single or unspecified fetus Qualified Code(s): O32.1XX0 - Maternal care for breech presentation, not applicable or unspecified (3) Hematoma of labia majora Priority: Secondary Status: Acute (4) Status post primary low transverse section Priority: Primary Status: Acute Comments: Doing well overall, hematoma's resolving and hgb stable. Desires to go home. - Discharge Medications Prescriptions: OxyCODONE/APAP 10/325 [Percocet 10/325 MG] 1 each PO Q4HR PRN #40 tablet PRN Reason: post op pain Ibuprofen [Motrin] 600 mg PO Q6HR PRN #40 tab PRN Reason: post op pain Docusate [Colace] 100 mg PO DAILY PRN #30 capsule PRN Reason: Constipation Ferrous Sulfate 325 mg PO BIDWM #60 tablet Home Medications: Ondansetron ODT [Zofran ODT] 4 mg SL Q8HR PRN #6 tab.rapdis 05/02/16 [Rx] Labetalol [Trandate] 100 mg PO BID 08/03/17 [History] Pnv95/Ferrous Fumarate/FA [ Vitamin Tablet] 1 each PO DAILY 08/03/17 [ History] Promethazine [Phenergan] 25 mg PO QPM 08/03/17 [History] Docusate [Colace] 100 mg PO DAILY PRN #30 capsule 08/17/17 [Rx] Ferrous Sulfate 325 mg PO BIDWM #60 tablet 08/17/17 [Rx] Ibuprofen [Motrin] 600 mg PO Q6HR PRN #40 tab 08/17/17 [Rx] OxyCODONE/APAP 10/325 [Percocet 10/325 MG] 1 each PO Q4HR PRN #40 tablet [Rx] Allergies/Adverse Reactions: 3 Allergy/AdvReac Type Severity Reaction Status Date / Time codeine Allergy Difficulty Verified 07/31/17 16:25 Breathing doxycycline Allergy Difficulty Verified 07/31/17 16:25 Breathing sulfamethoxazole Allergy Hives Verified 07/31/17 16:25 [From Bactrim] trimethoprim [From Bactrim] Allergy Hives Verified 07/31/17 16:25 Data Procedures and tests throughout hospitalization: Laboratory Tests 08/14/17 08/14/17 08/15/17 08:30 08:30 06:12 WBC 9.3 9.2 RBC 3.78 L 2.76 L Hgb 12.3 D 8.7 L D Hct 37.2 26.0 L MCV 98.4 94.2 MCH 32.5 31.5 MCHC 33.1 33.5 RDW 13.9 13.8 Plt Count 203 142 MPV 10.1 10.0 Seg Neutrophils % 61.2 60.0 Lymphocytes % 24.3 26.2 Immature Gran % 0.5 Monocytes % 12.3 12.2 Eosinophils % 0.6 0.8 Basophils % 0.4 0.3 Neutrophils # 5.7 5.5 Lymphocytes # 2.3 2.4 Monocytes # 1.1 1.1 Eosinophils # 0.1 0.1 Basophils # 0.0 0.0 Urine Opiates Screen Negative Ur Barbiturates Screen Negative Ur Phencyclidine Scrn Negative Ur Amphetamines Screen Negative U Benzodiazepines Scrn Negative Urine Cocaine Screen Negative U Marijuana (THC) Screen Negative 08/16/17 08/17/17 08:10 05:53 WBC 7.6 RBC 2.83 L Hgb 8.9 L 8.9 L Hct 27.5 L 27.2 L MCV 97.2 MCH 31.4 MCHC 32.4 RDW 13.4 Plt Count 167 MPV 10.0 Seg Neutrophils % Lymphocytes % Immature Gran % Monocytes % Eosinophils % Basophils % Neutrophils # Lymphocytes # Monocytes # Eosinophils # Basophils # Urine Opiates Screen Ur Barbiturates Screen Ur Phencyclidine Scrn Ur Amphetamines Screen U Benzodiazepines Scrn Urine Cocaine Screen U Marijuana (THC) Screen Labs on day of discharge: Labs from last 24 hours 08/17/17 05:53 Hgb 8.9 L Hct 27.2 L - Impressions Doing well fair pain control. eccymosis and swelling improved at labia. Voiding without difficulty. Ambulating without orthostatic symptoms. Date of admission: 08/14/17 08:50 Primary care physician: PCP NONE - Patient Status Disposition: Home, Self-Care Condition: Good Functional capacity at discharge: independent ambulation Overall status at discharge: patient is back to baseline - Discharge Instructions Follow Up With: Cl Mahajan MD [Partnered Physician] - - Diet and Activity Activity: increase activity as tolerated Diet: advance to your usual diet Hospital Course [employer] Time Attestation: Total time spent providing and/or coordinating discharge services: Exam - Constitutional Vitals: Temp Pulse Resp BP Pulse Ox 97.6 F 59 17 135/92 99 08/17/17 07:30 08/17/17 07:30 08/17/17 07:30 08/17/17 07:30 08/17/17 03:45 General appearance IM: A&O X 3 - Respiratory Respiratory exam: Present: CTAB - Cardiovascular Cardiovascular exam IM: Present: RRR - GI/Abdominal GI/Abdominal exam IM: normal bowel sounds Incision: normal, dry, other (Firm on right side of incision, no drainage, ecchymosis and firmness on mons and labia (improved)) - Uterus Position: 2 Fingers Below Umbilicus - Extremities Exam Extremities exam IM: Present: full ROM - Neurological Exam Neurological exam: oriented X3 - VTE Reasons for not Prescribing Prophylaxis: Treatment not Indicated - Low risk for VTE Documentation of Mechanical Device: Intermittent pneumatic compression device
== END 2017-08-17 13:36 | disposition home or self-care (01) | DRG 540 ==
LOC: SAMDAY 07:57 → 1NENULAB 08:50 → EDSTATUS 09:30 → 1NENUOBS 14:02
PROVIDERS: ADMIT Obstetrics & Gynecology; ATTEND Obstetrics & Gynecology

== ENCOUNTER 2017-09-01 20:40 | Observation (INO) ==
[2017-09-01 23:41] VITALS: BP 135/99
[2017-09-02] MEDS ORDERED: *HR* OxyCODONE/APAP 5/325 TABLET PO PRN (00:05)
[2017-09-02] MEDS ORDERED: Lidocaine 1% 20 ML MDV ONE ×2 (01:35→01:39)
--- NOTE | 2017-09-02 01:37 | OB/GYN History & Physical ---
Date of Encounter: 09/02/17 Time of Encounter: 01:33 Assessment and Plan (1) S/P section Current visit: Yes Status: Acute (2) Wound hematoma following section, Current visit: Yes Status: Acute Plan to incision and drainage of wound. Received Zosyn at outside facility. Cultures will be obtained at time of I and D. History of Present Illness Chief complaint: worsening pain at incision HPI: Ms. Quiroga is a 31 year old female presents from outside ED for fluid collection at her incision site. She was seen earlier this week with what looked like a hematoma. The patient at that time refused incision and drainage. She states the area had opened slightly and she was able to express some blood, but the pain has gotten progressively worse. She denies fever, chills, nausea or vomiting. Past Med Surg Social Fam HX - Past Medical History Source: patient Medical history: asthma, hypertension Psychiatric history: anxiety - Past Surgical History Surgical History: , other - Social History Smoking Status: Current every day smoker Smokeless Tobacco Status: No Alcohol use: none Drug use: none - Family History Mother Adopted: No Living Status: Still Living Hx Family Cardiac Disorders: No Hx Family Respiratory Disorders: No Hx Family Cancer: No Hx Family GI Disorders: No Hx Family Endocrine Disorder: No Hx Family Neuromuscular Disorders: No Hx Family Neurologic Disorders: No Hx Family HEENT Disorders: No Hx Family Autoimmune Disorders: No Father Living Status: Still Living Hx Family Cardiac Disorders: Yes (HTN) Medications and Allergies Ondansetron ODT [Zofran ODT] 4 mg SL Q8HR PRN #6 tab.rapdis 05/02/16 [Rx] Labetalol [Trandate] 100 mg PO BID 08/03/17 [History] Pnv95/Ferrous Fumarate/FA [ Vitamin Tablet] 1 each PO DAILY 08/03/17 [ History] Promethazine [Phenergan] 25 mg PO QPM 08/03/17 [History] Docusate [Colace] 100 mg PO DAILY PRN #30 capsule 08/17/17 [Rx] Ferrous Sulfate 325 mg PO BIDWM #60 tablet 08/17/17 [Rx] Ibuprofen [Motrin] 600 mg PO Q6HR PRN #40 tab 08/17/17 [Rx] OxyCODONE/APAP 10/325 [Percocet 10/325 MG] 1 each PO Q4HR PRN #40 tablet [Rx] 3 Allergy/AdvReac Type Severity Reaction Status Date / Time codeine Allergy Difficulty Verified 07/31/17 16:25 Breathing doxycycline Allergy Difficulty Verified 07/31/17 16:25 Breathing sulfamethoxazole Allergy Hives Verified 07/31/17 16:25 [From Bactrim] trimethoprim [From Bactrim] Allergy Hives Verified 07/31/17 16:25 Review of System OB All systems PM: reviewed and no additional remarkable complaints except as stated Exam - Vital Signs Vital signs: Initial Vital Signs Temp Pulse Resp BP Pulse Ox 98.2 F 65 18 135/99 98 09/01/17 23:40 09/01/17 23:40 09/01/17 23:40 09/01/17 23:40 09/01/17 23:40 - Constitutional Constitutional: well developed, well nourished, no acute distress, average body habitus - Lungs Respiratory exam: CTAB - Cardiovascular Cardiovascular exam: RRR - Abdomen Abdomen: Present: bowel sounds normal (tenderness noted along incision. The incision is well approxminated with area on the right side slight ooze of dark red blood and clot. No erythema around the incision or warmth) - Extremities Extremities exam: warm Results All other labs normal.
[2017-09-02] MEDS ORDERED: Lidocaine/EPI 1:100k 2% 20 ML VIAL INFILT ONE (01:45)
[2017-09-02] MEDS ORDERED: Ringers Solution, Lactated 1,000 ML IVC SCH (01:45)
--- NOTE | 2017-09-02 02:24 | Discharge Summary ---
Outpatient Proc Discharge Plan - Plan Additional Instructions: Watch for signs of infection. Call or return for fever, chills, nausea or vomiting. Followup with Dr. Mahajan this week for culture results-Call Sunday for culture results. Prompt nurses that they were done here in the hospital Prescriptions: OxyCODONE/APAP 5/325 [Percocet 5/325 MG] 1 each PO Q4HR PRN #42 tablet PRN Reason: Pain Home Medications: Ondansetron ODT [Zofran ODT] 4 mg SL Q8HR PRN #6 tab.rapdis 05/02/16 [Rx] Labetalol [Trandate] 100 mg PO BID 08/03/17 [History] Pnv95/Ferrous Fumarate/FA [ Vitamin Tablet] 1 each PO DAILY 08/03/17 [ History] Promethazine [Phenergan] 25 mg PO QPM 08/03/17 [History] Docusate [Colace] 100 mg PO DAILY PRN #30 capsule 08/17/17 [Rx] Ferrous Sulfate 325 mg PO BIDWM #60 tablet 08/17/17 [Rx] Ibuprofen [Motrin] 600 mg PO Q6HR PRN #40 tab 08/17/17 [Rx] OxyCODONE/APAP 5/325 [Percocet 5/325 MG] 1 each PO Q4HR PRN #42 tablet 09/02/17 [Rx]
== END 2017-09-02 02:50 | disposition home or self-care (01) ==
LOC: 1NENUPED
PROVIDERS: ADMIT Obstetrics & Gynecology; ATTEND Obstetrics & Gynecology